=== PATIENT | female | born 1945 | race Caucasian/White ===

== ENCOUNTER 2020-10-29 21:21 | Emergency (ER) | payer MEDICARE, MEDICAID ==
[~2020-10-29] VITALS: Ht 167.6 cm; Wt 77.0 kg
[2020-10-29 21:57] LABS: CLARITY,URINE CLEAR (Clear); COLOR,URINE YELLOW (Yellow); GLUCOSE, URINE NEGATIVE (Neg); KETONES,URINE NEGATIVE (Neg); LEUKOCYTE ESTERASE ,URINE NEGATIVE (Neg); NITRITES, URINE NEGATIVE (Neg); OCCULT BLOOD,URINE TRACE-INTACT (Neg); PH,URINE 5.5 (4.8-8.0); PROTEIN,URINE NEGATIVE (Neg); UROBILINOGEN,URINE 0.2 E.U/dL (0.2-1.0)
[2020-10-29 22:04] LABS: UA COLLECTION TYPE CLN CATCH MIDSTREAM
[2020-10-29 22:05] LABS: BACTERIA,URINE NONE SEEN /HPF (Neg); RBC,URINE 0-2 /HPF (0-2); SQUAMOUS EPITHELIAL CELL,UR FEW /LPF (FEW); WBC,URINE 0-4 /HPF (0-4)
[2020-10-29 22:08] LABS: BASOPHILS # (AUTO) 0.1 X10'3 (0-0.2); BASOPHILS % (AUTO) 0.8 % (0-1); EOSINOPHILS # (AUTO) 0.3 X10'3 (0-0.9); EOSINOPHILS % (AUTO) 3.4 % (0-6); HEMOGLOBIN 14.5 g/dl (12.0-16.0); LYMPHOCYTES # (AUTO) 2.7 X10'3 (1.1-4.8); LYMPHOCYTES % (AUTO) 36.1 % (21-51); MEAN CORPUSCULAR HEMOGLOBIN 31.1 PG (27.0-31.0); MEAN CORPUSCULAR HGB CONC 34.7 g/dL (33.0-36.5); MEAN CORPUSCULAR VOLUME 89.9 FL (78-98); MONOCYTES % (AUTO) 12.9 % (2-12); NEUTROPHILS # (AUTO) 3.5 X10'3 (1.8-7.7); NEUTROPHILS % (AUTO) 46.8 % (42-75); PLATELET COUNT 241 X10'3 (140-440); RED BLOOD COUNT 4.67 X10'6 (4.20-5.60); RED CELL DISTRIBUTION WIDTH 14.5 % (11.5-14.5); WHITE BLOOD COUNT 7.5 X10'3 (4.5-11.0)
[2020-10-29 22:16] LABS: ALANINE AMINOTRANSFERASE 31 U/L (12-78); ALBUMIN/GLOBULIN RATIO 1.2 (1.1-1.5); ALKALINE PHOSPHATASE 71 IU/L (46-116); ANION GAP 4 (8-16); ASPARTATE AMINO TRANSFERASE 26 U/L (10-37); BILIRUBIN,TOTAL 0.5 MG/DL (0.1-1.0); BLOOD UREA NITROGEN 20 MG/DL (7-18); BUN/CREATININE RATIO 18.9 (6.6-38.0); CALCIUM 8.9 MG/DL (8.5-10.1); CHLORIDE 101 MMOL/L (99-107); CREATININE 1.06 MG/DL (0.40-0.90); GLUCOSE 104 MG/DL (70-104); LIPASE 202 U/L (73-393); POTASSIUM 3.4 MMOL/L (3.5-5.1); SODIUM 131 MMOL/L (135-145); TOTAL CARBON DIOXIDE 25.6 MMOL/L (24-32); TOTAL PROTEIN 7.3 G/DL (6.4-8.2); eGFR 50 ML/MIN
[2020-10-30] MEDS ORDERED: pantoprazole 40 MG vial IV ONE (01:50)
[2020-10-30] MEDS ORDERED: ondansetron/PF 4mg/2ml inj IV ONE (01:50)
[2020-10-30] MEDS ORDERED: normal saline 1000ML IV soln IVB ONE ×2 (01:50)
[2020-10-30] MEDS ORDERED: iohexol 300mg/ml 100ml inj. ONE (01:53)
[2020-10-30 03:26] VITALS: BP 176/61
[2020-10-30] MEDS ORDERED: polyethylene glycol 3350 17gm powd pack PO ONE (03:50)
[2020-10-30 07:30] LABS: OCCULT BLOOD STOOL NEGATIVE (Neg)
== END 2020-10-30 05:09 | disposition home or self-care (01) ==
LOC: ER 10-30 02:12
DX: R10.10 Upper abdominal pain, unspecified (principal); R11.0 Nausea; R10.9 Unspecified abdominal pain; R63.0 Anorexia; I10 Essential (primary) hypertension
CPT/HCPCS: 36415; 74177; 80053; 81001; 82272; 83690; 85025; 96361; 96374; 96375; 99285; C9113; J2405; J7030; Q9967

== ENCOUNTER 2023-01-01 13:46 | Emergency (ER) | payer MEDICARE, MEDICAID ==
[~2023-01-01] VITALS: Ht 167.6 cm; Wt 90.0 kg
[2023-01-01 13:52] VITALS: TEMP 99.8
[2023-01-01 17:21] LABS: BASOPHILS % (AUTO) 0.5 % (0-1); EOSINOPHILS # (AUTO) 0.2 X10'3 (0-0.9); EOSINOPHILS % (AUTO) 1.6 % (0-6); HEMATOCRIT 41.7 % (35.0-45.0); HEMOGLOBIN 14.6 g/dl (12.0-16.0); LYMPHOCYTES # (AUTO) 2.8 X10'3 (1.1-4.8); LYMPHOCYTES % (AUTO) 26.6 % (21-51); MEAN CORPUSCULAR HEMOGLOBIN 33.8 PG (27.0-31.0); MEAN CORPUSCULAR HGB CONC 34.9 g/dL (33.0-36.5); MEAN CORPUSCULAR VOLUME 96.7 FL (78-98); MEAN PLATELET VOLUME 6.9 FL (7.4-10.4); MONOCYTES # (AUTO) 0.8 X10'3 (0-0.9); MONOCYTES % (AUTO) 8.2 % (2-12); NEUTROPHILS # (AUTO) 6.5 X10'3 (1.8-7.7); NEUTROPHILS % (AUTO) 63.1 % (42-75); PLATELET COUNT 241 X10'3 (140-440); RED BLOOD COUNT 4.31 X10'6 (4.20-5.60); RED CELL DISTRIBUTION WIDTH 13.2 % (11.5-14.5); WHITE BLOOD COUNT 10.3 X10'3 (4.5-11.0)
[2023-01-01 17:38] LABS: APTT 30 SECONDS (22-32); PROTHROMBIN TIME 10.3 SECONDS (9.0-12.0)
[2023-01-01 17:44] LABS: ALANINE AMINOTRANSFERASE 32 U/L (12-78); ALBUMIN/GLOBULIN RATIO 1.1 (1.1-1.5); ALKALINE PHOSPHATASE 67 IU/L (46-116); AMYLASE 98 U/L (25-115); ANION GAP 9 (8-16); ASPARTATE AMINO TRANSFERASE 26 U/L (10-37); BILIRUBIN,TOTAL 0.6 MG/DL (0.1-1.0); BLOOD UREA NITROGEN 25 MG/DL (7-18); BUN/CREATININE RATIO 23.4 (10.0-20.0); CALCIUM 9.7 MG/DL (8.5-10.1); CHLORIDE 100 MMOL/L (99-107); CREATININE 1.07 MG/DL (0.40-0.90); GLUCOSE 113 MG/DL (70-104); SODIUM 135 MMOL/L (135-145); TOTAL CARBON DIOXIDE 26.1 MMOL/L (24-32); TOTAL PROTEIN 7.8 G/DL (6.4-8.2); eCRCL 40 ML/MIN; eGFR 49 ML/MIN
[2023-01-01 17:48] LABS: POTASSIUM 2.9 MMOL/L (3.5-5.1)
[2023-01-01] MEDS ORDERED: potassium chloride 8mEq ER tablet PO ONE (18:10)
[2023-01-01] MEDS ORDERED: magnesium oxide 400mg tablet PO ONE (18:50)
[2023-01-01] MEDS ORDERED: iohexol 300mg/ml 100ml inj. ONE (19:08)
[2023-01-01 19:54] LABS: BILIRUBIN,URINE NEGATIVE (Neg); CLARITY,URINE SLIGHTLY CLOUDY (Clear); COLOR,URINE STRAW (Yellow); GLUCOSE, URINE NEGATIVE (Neg); KETONES,URINE NEGATIVE (Neg); LEUKOCYTE ESTERASE ,URINE NEGATIVE (Neg); NITRITES, URINE NEGATIVE (Neg); OCCULT BLOOD,URINE TRACE-INTACT (Neg); PROTEIN,URINE NEGATIVE (Neg); UROBILINOGEN,URINE 0.2 E.U/dL (0.2-1.0)
[2023-01-01 19:56] LABS: UA COLLECTION TYPE CLN CATCH MIDSTREAM
[2023-01-01 20:01] LABS: ETHANOL < 10 MG/DL (<10); MAGNESIUM 2.1 MG/DL (1.5-2.4)
[2023-01-01 20:02] LABS: BACTERIA,URINE 1+ /HPF (Neg); MUCUS STRANDS FEW /LPF (Neg); RBC,URINE 0-2 /HPF (0-2); SQUAMOUS EPITHELIAL CELL,UR MODERATE /LPF (FEW)
[2023-01-01 20:03] LABS: YEAST FEW /HPF (NEGATIVE)
[2023-01-01 20:10] LABS: URINE AMPHETAMINE SCREEN NEGATIVE (Neg); URINE BARBITUATE SCREEN NEGATIVE (Neg); URINE BENZODIAZEPINES SCREEN NEGATIVE (Neg); URINE CANNABINOID SCREEN NEGATIVE (Neg); URINE COCAINE SCREEN NEGATIVE (Neg); URINE METHADONE SCREEN NEGATIVE (Neg); URINE OPIATE SCREEN NEGATIVE (Neg); URINE PHENCYCLIDINE SCREEN NEGATIVE (Neg)
[2023-01-01] MEDS ORDERED: POTASSIUM BICARB 20meq eff tab 20 MEQ TABLET.EFF PO STA (20:10)
[2023-01-01] MEDS ORDERED: lactulose 20gm/30ml cup PO ONE (20:15)
[2023-01-01] MEDS ORDERED: POTASSIUM BICARB 20meq eff tab 20 MEQ TABLET.EFF PO SCH (20:20)
[2023-01-01] MEDS ORDERED: POTASSIUM BICARB 20meq eff tab 20 MEQ TABLET.EFF PO ONE (20:20)
[2023-01-01] MEDS ORDERED: FOSFOMYCIN TROMETHAMINE 3 GM PACKET PO ONE (21:10)
[2023-01-01] MEDS ORDERED: POTA-207 PO (21:34)
[2023-01-01 21:56] VITALS: BP 145/88; PULSE 78; RESP 16; O2SAT 98
== END 2023-01-01 21:58 | disposition home or self-care (01) ==
LOC: ER 13:46
DX: N39.0 Urinary tract infection, site not specified (principal); R10.84 Generalized abdominal pain; E87.6 Hypokalemia; F32.A Depression, unspecified; I10 Essential (primary) hypertension; Z90.49 Acquired absence of other specified parts of digestive tract
CPT/HCPCS: 36415; 74177; 80053; 80305; 80320; 81001; 82150; 83690; 83735; 84145; 84484; 85025; 85610; 85730; 87088; 93005; 99285; J3490; Q9967

== ENCOUNTER 2024-03-27 01:22 | Emergency (ER) | payer MEDICARE, MEDICAID ==
[~2024-03-27] VITALS: Ht 167.6 cm; Wt 94.0 kg
[2024-03-27 01:55] LABS: BILIRUBIN,URINE NEGATIVE (Neg); GLUCOSE, URINE NEGATIVE (Neg); KETONES,URINE NEGATIVE (Neg); LEUKOCYTE ESTERASE ,URINE NEGATIVE (Neg); NITRITES, URINE NEGATIVE (Neg); OCCULT BLOOD,URINE NEGATIVE (Neg); PROTEIN,URINE NEGATIVE (Neg); UROBILINOGEN,URINE 0.2 E.U/dL (0.2-1.0)
[2024-03-27 01:58] LABS: CLARITY,URINE CLEAR (Clear); COLOR,URINE YELLOW (Yellow); UA COLLECTION TYPE VOIDED
[2024-03-27 02:02] LABS: BASOPHILS # (AUTO) 0.1 X10'3 (0-0.2); BASOPHILS % (AUTO) 1.1 % (0-1); EOSINOPHILS # (AUTO) 0.3 X10'3 (0-0.9); EOSINOPHILS % (AUTO) 4.5 % (0-6); HEMATOCRIT 39.2 % (35.0-45.0); HEMOGLOBIN 13.8 g/dl (12.0-16.0); LYMPHOCYTES # (AUTO) 2.5 X10'3 (1.1-4.8); LYMPHOCYTES % (AUTO) 35.4 % (21-51); MEAN CORPUSCULAR HEMOGLOBIN 32.1 PG (27.0-31.0); MEAN CORPUSCULAR HGB CONC 35.2 g/dL (33.0-36.5); MEAN CORPUSCULAR VOLUME 91.1 FL (78-98); MEAN PLATELET VOLUME 6.7 FL (7.4-10.4); MONOCYTES # (AUTO) 0.8 X10'3 (0-0.9); MONOCYTES % (AUTO) 11.1 % (2-12); NEUTROPHILS # (AUTO) 3.4 X10'3 (1.8-7.7); NEUTROPHILS % (AUTO) 47.9 % (42-75); PLATELET COUNT 207 X10'3 (140-440); RED CELL DISTRIBUTION WIDTH 13.3 % (11.5-14.5); WHITE BLOOD COUNT 7.1 X10'3 (4.5-11.0)
[2024-03-27 02:09] LABS: ALBUMIN 3.7 G/DL (3.4-5.0); ANION GAP 12 (8-16); BLOOD UREA NITROGEN 18 MG/DL (7-18); BUN/CREATININE RATIO 17.5 (10.0-20.0); CALCIUM 9.1 MG/DL (8.5-10.1); CHLORIDE 102 MMOL/L (99-107); CREATININE 1.03 MG/DL (0.40-0.90); GLUCOSE 121 MG/DL (70-104); POTASSIUM 4.2 MMOL/L (3.5-5.1); SODIUM 138 MMOL/L (135-145); TOTAL CARBON DIOXIDE 24.2 MMOL/L (24-32); eCRCL 41 ML/MIN; eGFR 52 ML/MIN
[2024-03-27 03:56] VITALS: TEMP 98.1
[2024-03-27] MEDS: CefTRIAXone/D5W-Rocephin 1gm 50 ML IV ONE (04:11)
[2024-03-27] MEDS ORDERED: AMOX-115 PO (04:27)
[2024-03-27 05:02] VITALS: BP 134/67; PULSE 66; RESP 16; O2SAT 94
== END 2024-03-27 05:15 | disposition home or self-care (01) ==
LOC: ER 01:23
DX: K57.30 Diverticulosis of large intestine without perforation or abscess without bleeding (principal)
CPT/HCPCS: 36415; 74176; 80048; 81003; 84145; 85025; 96365; 99285; J0696; J7030